=== PATIENT | male | born 1990 | race Caucasian/White ===

== ENCOUNTER 2017-01-05 08:33 | Day surgery (SDC) | payer OTHER ==
[2017-01-02 15:06] VITALS: BMI 26.6
[2017-01-05] MEDS ORDERED: ROPIVACAINE HCL 0.5% 30ML VIAL ONE (10:26)
[2017-01-05] MEDS ORDERED: DEXAMETHASONE SOD PHOSPHATE/PF 10 MG/ML SDV ONE (10:26)
[2017-01-05] MEDS ORDERED: MIDAZOLAM HCL 2 MG/2 ML SINGLE DOSE VIAL ONE ×4 (10:26→11:34)
[2017-01-05] MEDS ORDERED: PROPOFOL 20 ML ONE ×4 (11:42→12:21)
[2017-01-05] MEDS ORDERED: oxyCODONE HCL 5 MG TABLET PO PRN ×3 (12:46→12:58)
[2017-01-05] MEDS ORDERED: ONDANSETRON 4 MG/2 ML VIAL IVPUSH PRN (12:46)
[2017-01-05] MEDS ORDERED: oxyCODONE HCL 10 MG SUSTAINED ACTING TABLET PO ONE (12:58)
[2017-01-05] MEDS ORDERED: LACTATED RINGERS SOLUTION 1,000 ML IV SCH (13:00)
[2017-01-05] MEDS ORDERED: ONDANSETRON 4 MG/2 ML VIAL ONE (13:02)
--- NOTE | 2017-01-05 13:03 | DS ---
Physical Examination Vital Signs: Vital Signs Temperature 98 F 01/05/17 09:07 Pulse Rate 54 L 01/05/17 09:07 Respiratory Rate 17 01/05/17 09:07 Blood Pressure 130/79 01/05/17 09:07 O2 Sat by Pulse Oximetry (%) 98 01/05/17 09:13 Discharge Summary Reason For Visit: BICEPS TENOSYNOVITIS RIGHT SHOULDER Condition: Good - Instructions Diet, Activity, Other Instructions: Post Operative Instructions: Shoulder Arthroscopy Dr Demetrio Carroll 1. Pain following a Shoulder Arthroscopy is variable and can be significant. Some patients will have more pain than others. You have been provided with a prescription for medication that contains a narcotic. You are not allowed to drive while on this medication. Feel free to take Tylenol and medications such as Ibuprofen or Naprosyn in addition to the pain medicine if you do not have any problems with the NSAID class of medications. 2. Apply ice to the shoulder for 15 minutes every hour. You may continue this for as many days as necessary. 3. You may find sleeping on an incline (reclining chair) to be more comfortable for the first few days. 4. You must remain in your sling at all times except when showering. The only exception to this is to allow you to stretch your elbow a few times a day to prevent your hand and forearm from swelling. 5. You are not to use your arm to reach for anything, lift anything or carry anything until instructed otherwise. 6. You may remove the bandages in 48 hours. You may shower at that point. 7. Place band-aids on the incisions after your shower.Do not put any creams or lotions on the incisions. 8. Please call the office to schedule a visit to have your sutures removed. 9. If for any reason you believe you may have an infection or are concerned, please feel free to call me. I can be reached through our office number 24 hours a day. 10. Please call our office with any questions; we will review the surgical findings during your post-operative visit. Disposition: HOME - Home Medications Comprehensive Discharge Medication List: Ambulatory Orders NK [No Known Home Medication] 01/02/17
--- NOTE | 2017-01-05 13:03 | OP ---
Operative Note - Note: Operative Date: 01/05/17 Pre-Operative Diagnosis: Right shoulder labral tear, right shoulder biceps tendonitis Operation: RSA< biceps tenodesis, labral debridement Post-Operative Diagnosis: Same as Pre-op Surgeon: Demetrio Carroll Anesthesiologist/SET AND EXHIBIT DESIGNER: Santiago Howard Anesthesia: General Operative Report Dictated: Yes
--- NOTE | 2017-01-05 14:52 | SURG ---
Surgery Hearing Therapy Director Note Hearing Therapy Director: Mark Anthony Nice PA-C Date of Service: 01/05/17 Diagnosis: Right shoulder labral tear, right shoulder biceps tendonitis Procedure: Right shoulder arthroscopy, biceps tenodesis, labral debridement I was present for the entirety of the operative procedure. For further detail, please refer to operative report. Visit type - Case Type Case Type: Scheduled Admission - New patient This patient is new to me today: Yes Date on this admission: 01/05/17
[2017-01-05 15:28] VITALS: TEMP 97.9
[2017-01-05 16:13] VITALS: BP 116/70; PULSE 66
--- NOTE | 2017-01-09 14:03 | PATH ---
Surgical Pathology Report Patient Name: [facility]I [facility]. Rec. #: [id number] /Age/Gender: 1990 (Age: 26) / M Account: [id number] Location: [facility] Taken: 01/05/2017 Received: 01/05/2017 Reported: 01/09/2017 Physicians: Demetrio Carroll M.D. Specimen(s) Received A: SHAVINGS RIGHT SHOULDER B: RIGHT BICEPS TENDON Clinical History Biceps tendon synovitis right shoulder Final Diagnosis A. RIGHT SHOULDER, ARTHROSCOPIC SHAVINGS: FIBROCARTILAGE WITH MYXOID DEGENERATIVE CHANGES, PORTIONS OF SYNOVIUM, FRAGMENTS OF BONE, AND CLOTTED BLOOD. B. RIGHT BICEPS TENDON, PARTIAL EXCISION: ORGANIZED FIBROUS TISSUE CONSISTENT WITH PORTION OF TENDON, WITH ATTACHED SYNOVIUM. Electronically Signed Mc Carter M.D. Gross Description A. Received in formalin labeled "shavings right shoulder," is a 1.0 x 0.8 x 0.2 cm aggregate of may soft tissue fragments admixed with blood clot. The specimen is entirely submitted in one cassette. B. Received in formalin labeled "right biceps tendon," is a 6.0 x 0.7 x 0.2 cm may, irregular portion of fibrous tissue, consistent with a portion of tendon. Professor Of Theology sections are submitted in one cassette. 01/08/2017 [facility]01/08/2017
== END 2017-01-05 15:35 | disposition home or self-care (01) ==
LOC: FASU 08:33
PROVIDERS: ATTEND Orthopaedic Surgery
PROC: 0RBJ4ZZ Excision of Right Shoulder Joint, Percutaneous Endoscopic Approach (ICD-10-PCS; 2017-01-05)
PROC: 0LS30ZZ Reposition Right Upper Arm Tendon, Open Approach (ICD-10-PCS; principal; 2017-01-05 11:22)
DX: M75.21 Bicipital tendinitis, right shoulder (principal); M24.111 Other articular cartilage disorders, right shoulder
CPT/HCPCS: 88304-TC; 94760